=== PATIENT | male | born 1950 | race Caucasian/White ===

== ENCOUNTER → 2016-12-16 | Outpatient (CLI) | payer OTHER ==
--- NOTE | ~2016-12-16 | NDGEN ---
PATIENT'S NAME: [facility] AGE: 66 Y [address] ROOM: [place], [place] [id number] LOCATION: [facility] ADMIT DATE: 12/16/2016 Neurodiagnostics DISCHARGE DATE: FAMILY PHYSICIAN: ALBINA HALLMAN MD ATTENDING PHYSICIAN: ALIBNA HALLMAN PROCEDURE: NERVE CONDUCTION STUDY EMG. DATE OF PROCEDURE: 12/16/2016 INDICATION: This 66-year-old male patient who complains about numbness into the median distribution of the left hand. He has pain that has been increasing for many months. He also has some weakness in the hand and noted atrophy of the left thenar eminence. Nerve conduction studies were performed in the bilateral median and ulnar motor and sensory nerves. In the left median motor nerve, there was delay at the wrist at 4.3 msec with amplitudes very low at 200 microvolts. In the right median nerve at the wrist, there was fairly well preserved amplitudes of 3.2 mV with normal nerve conduction velocities. The ulnar motor studies were all within normal limits with normal motor onset latencies. Peak amplitudes and nerve conduction velocities into the 50s m/sec range. Sensory nerve conduction studies were performed. There was complete absence of sensory nerve action potentials at the left median sensory nerve. The right median sensory nerve action potentials do show some slowing of the peak onset latencies in the right median sensory nerve. The left and right ulnar sensory nerve action potentials all were within normal limits with normal speeds and amplitudes. A needle was placed into the left abductor pollicis brevis muscle with the muscle at rest. With the muscle at rest, there was florid fibrillation potentials and positive sharp waves seen, extensive insertional activity, all being abnormal findings. The abductor pollicis brevis was exercised, but there was extremely diminished firing of motor unit action potentials. In the right upper extremity abductor pollicis brevis muscle, there was no evidence of any abnormal electrical activity such as positive sharp waves or fibrillation potentials and there was full recruitment of motor unit action potentials, and the rest of the EMG of the bilateral upper extremities testing the bilateral triceps, biceps, and deltoids, there was normal electrical activity at rest and full recruitment of PATIENT'S NAME: [facility] AGE: 66 Y [address] ROOM: [place], [place] [id number] LOCATION: [facility] ADMIT DATE: 12/16/2016 Neurodiagnostics DISCHARGE DATE: FAMILY PHYSICIAN: ALBINA HALLMAN MD ATTENDING PHYSICIAN: ALBINA HALLMAN motor unit action potentials. 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 The patient should undergo carpal tunnel release surgery. *It is noted that there is likely an anastomosis at the forearm of the median nerve, that crosses over to the ulnar side. Thus, in order to record compound motor potentials over the abductor pollicis brevis muscle, we stimulated over the ulnar nerve at the medial wrist. When stimulating at the elbow site, amplitudes were lower than at the wrist, therefore, it likely demonstrates a median nerve crossover the ulnar distribution. This should be known as it may affect ultimately the surgery at the left wrist. There was no median crossover noted at the right upper extremity. The findings on the rest of the EMG study does not support any evidence for cervical radiculopathy. MD ERNESTO VILLANUEVA/nickl /[id number] dtt: 12/27/16 1652 , ATIF FERNANDEZ dtd: 12/16/16 1926
== END | disposition disaster alternative care site (69) ==
LOC: GNEU 14:00
DX: M79.602 Pain in left arm (principal); G62.9 Polyneuropathy, unspecified